=== PATIENT | female | born 1980 | race Caucasian/White ===

== ENCOUNTER → 2018-05-27 | Outpatient (CLI) | payer MEDICAID | END | disposition home or self-care (01) | LOC: RAD 16:43 | DX: R76.11 Nonspecific reaction to tuberculin skin test without active tuberculosis (principal) | CPT/HCPCS: 71045 ==

== ENCOUNTER 2018-12-15 13:50 | Inpatient (IN) | payer MEDICAID ==
[~2018-12-15 13:50] MED LIST: EPHEDrine SULFATE 50 MG/5 ML SYG; OXYTOCIN 30 UNITS/LR 500 ML BAG IV
[2018-12-15] MEDS ORDERED: OXYTOCIN 30 UNITS/LR 500 ML IV ×2 (14:30→23:30)
[2018-12-15] MEDS ORDERED: CARBOPROST 250 MCG INJ IM ×2 (14:30→23:30)
[2018-12-15] MEDS ORDERED: LIDOCAINE 1% (MPF) 30 ML INJ INJ (14:30)
[2018-12-15] MEDS ORDERED: MISOPROSTOL 200 MCG TAB PR ×2 (14:30→23:30)
[2018-12-15] MEDS ORDERED: METHYLERGONOVINE 0.2 MG INJ IM ×2 (14:30→23:30)
[2018-12-15 15:17] LABS: ADD MAN DIFF? NO
[2018-12-15 15:21] LABS: WHITE BLOOD COUNT 6.1 10^3/ul (4.8-10.8)
[2018-12-15 15:21] LABS: BASOPHILS % 0.2 % (0.0-2.0); EOSINOPHILS % 0.3 % (0.0-7.0); HEMOGLOBIN 11.5 g/dl (12.0-16.0); LYMPHOCYTES # 1.4 10^3/ul (0.8-2.9); MEAN CORPUSCULAR HEMOGLOBIN 30.3 pg (29.0-33.0); MEAN CORPUSCULAR HGB CONC 34.8 g/dl (32.0-37.0); MEAN CORPUSCULAR VOLUME 86.8 fl (82.0-101.0); MEAN PLATELET VOLUME 9.9 fl (7.4-10.4); MONOCYTE # 0.5 10^3/ul (0.3-0.9); MONOCYTES % 7.7 % (0.0-11.0); NEUTROPHIL # 4.2 10^3/ul (1.6-7.5); NEUTROPHILS % 68.3 % (39.0-77.0); PLATELET COUNT 238 10^3/UL (140-415); RED CELL DISTRIBUTION WIDTH 13.1 % (11.5-14.5)
[2018-12-15] MEDS: LACTATED RINGER'S 1,000 ML IV ×2 (15:28→16:20)
[2018-12-15] MEDS ORDERED: CEFAZOLIN 2 GM/50 ML (PMX) 50 ML IVPB (15:30)
[2018-12-15 15:39] LABS: INR 0.89; PROTIME 12.1 Sec (11.9-14.9); PT RATIO 0.9
[2018-12-15 15:40] LABS: PARTIAL THROMBOPLASTIN TIME 24.3 Sec (23.0-35.0)
[2018-12-15 16:10] LABS: HEPATITIS B SURFACE ANTIGEN NEGATIVE (NEGATIVE)
[2018-12-15 16:24] LABS: RAPID PLASMA REAGIN NONREACTIVE (NR)
[2018-12-15] MEDS: CITRIC ACID/NA CITRATE 30 ML CUP PO (17:09)
[2018-12-15] MEDS: ONDANSETRON 4 MG INJ IV (17:09)
[2018-12-15] MEDS ORDERED: morphine SULFATE/PF (10 MG/10 ML) INJ (17:36)
[2018-12-15] MEDS ORDERED: PHENYLephrine (100 MCG/ML) 10ML SYG (17:36)
[2018-12-15] MEDS ORDERED: OXYTOCIN 10 UNIT INJ (17:36)
[2018-12-15] MEDS ORDERED: KETOROLAC 30 MG INJ (17:44)
[2018-12-15] MEDS ORDERED: DEXAMETHASONE 4 MG/ML 1 ML INJ (17:44)
[2018-12-15] MEDS: KETOROLAC 30 MG INJ IV (18:30)
[2018-12-15] MEDS: AZITHROMYCIN 500MG/NS (PMX) 250 ML IVPB (18:30)
[2018-12-15] MEDS ORDERED: NALBUPHINE HCL (10 MG/1 ML) INJ IV (19:00)
[2018-12-15] MEDS ORDERED: NALOXONE (0.4 MG/ML) INJ IV (19:00)
[2018-12-15] MEDS ORDERED: DIPHENHYDRAMINE 50 MG INJ IV (19:00)
[2018-12-15] MEDS ORDERED: ONDANSETRON 4 MG INJ IV (19:00)
[2018-12-15] MEDS ORDERED: morphine 2 MG INJ IV ×2 (19:00)
[2018-12-15] MEDS ORDERED: HYDROCODONE/APAP (5/325) TAB PO (19:00)
[2018-12-15] MEDS ORDERED: ACETAMINOPHEN 500 MG TAB PO (19:00)
[2018-12-15] MEDS ORDERED: KETOROLAC 30 MG INJ IV (19:00)
[2018-12-15] MEDS ORDERED: HYDROmorphONE 0.5 MG/0.5 ML SYG IV ×2 (19:00)
[2018-12-15] MEDS: OXYTOCIN 30 UNITS/LR 500 ML IV ×2 (20:06→20:07)
[2018-12-15] MEDS ORDERED: NA PHOSPHATE/BIPHOS 133 ML ENEMA PR (23:30)
[2018-12-16] MEDS: LACTATED RINGER'S 1,000 ML IV (00:49)
[2018-12-16] MEDS: CEFAZOLIN 2 GM/50 ML (PMX) 50 ML IVPB ×3 (00:49→15:23)
[2018-12-16] MEDS: CLINDAMYCIN 300 MG CAP PO ×5 (01:26→23:40)
[2018-12-16 08:50] LABS: ADD MAN DIFF? NO
[2018-12-16 08:53] LABS: BASOPHILS % 0.1 % (0.0-2.0); HEMATOCRIT 29.9 % (37.0-47.0); LYMPHOCYTES # 1.4 10^3/ul (0.8-2.9); LYMPHOCYTES % 12.3 % (15.0-51.0); MEAN CORPUSCULAR HEMOGLOBIN 29.3 pg (29.0-33.0); MEAN CORPUSCULAR HGB CONC 33.4 g/dl (32.0-37.0); MEAN CORPUSCULAR VOLUME 87.7 fl (82.0-101.0); MEAN PLATELET VOLUME 10.1 fl (7.4-10.4); MONOCYTE # 0.8 10^3/ul (0.3-0.9); MONOCYTES % 6.8 % (0.0-11.0); NEUTROPHIL # 8.9 10^3/ul (1.6-7.5); NEUTROPHILS % 80.3 % (39.0-77.0); PLATELET COUNT 209 10^3/UL (140-415); RED BLOOD COUNT 3.41 10^6/ul (4.20-5.40); RED CELL DISTRIBUTION WIDTH 13.2 % (11.5-14.5)
[2018-12-16] MEDS: SENNA/DOCUSATE NA (8.6MG/50MG) TAB PO ×2 (09:38→21:34)
[2018-12-16] MEDS: BISACODYL 10 MG SUPP PR (10:30)
[2018-12-16] MEDS ORDERED: HYDROCODONE/APAP (5/325) TAB PO (17:25)
[2018-12-16] MEDS: IBUPROFEN 800 MG TAB PO (21:33)
[2018-12-16] MEDS: LANOLIN HPA 1 PKT TOP (23:40)
[2018-12-17] MEDS: OXYCODONE/ACETAMINOPHEN (5/325) TAB PO ×2 (03:34→08:48)
[2018-12-17] MEDS: CLINDAMYCIN 300 MG CAP PO ×4 (05:44→23:43)
[2018-12-17] MEDS: IBUPROFEN 800 MG TAB PO ×3 (05:44→21:42)
[2018-12-17] MEDS: SENNA/DOCUSATE NA (8.6MG/50MG) TAB PO ×2 (08:48→21:41)
[2018-12-17 09:15] LABS: ADD MAN DIFF? NO
[2018-12-17 09:19] LABS: BASOPHILS % 0.1 % (0.0-2.0); EOSINOPHILS % 0.1 % (0.0-7.0); HEMATOCRIT 30.8 % (37.0-47.0); HEMOGLOBIN 10.4 g/dl (12.0-16.0); LYMPHOCYTES # 1.1 10^3/ul (0.8-2.9); LYMPHOCYTES % 11.2 % (15.0-51.0); MEAN CORPUSCULAR HEMOGLOBIN 29.4 pg (29.0-33.0); MEAN CORPUSCULAR HGB CONC 33.8 g/dl (32.0-37.0); MEAN PLATELET VOLUME 9.5 fl (7.4-10.4); MONOCYTE # 0.5 10^3/ul (0.3-0.9); MONOCYTES % 4.7 % (0.0-11.0); NEUTROPHIL # 8.1 10^3/ul (1.6-7.5); NEUTROPHILS % 83.2 % (39.0-77.0); PLATELET COUNT 215 10^3/UL (140-415); RED BLOOD COUNT 3.54 10^6/ul (4.20-5.40); RED CELL DISTRIBUTION WIDTH 13.4 % (11.5-14.5)
[2018-12-17 09:19] LABS: WHITE BLOOD COUNT 9.7 10^3/ul (4.8-10.8)
[2018-12-17] MEDS: CIPROFLOXACIN 500 MG TAB PO ×2 (15:12→18:13)
[2018-12-17] MEDS: ACETAMINOPHEN 325 MG TAB PO (15:13)
[2018-12-17] MEDS ORDERED: ACETAMINOPHEN 325 MG TAB PO (16:00)
[2018-12-18] MEDS: CLINDAMYCIN 300 MG CAP PO ×2 (05:44→11:52)
[2018-12-18] MEDS: IBUPROFEN 800 MG TAB PO (05:44)
[2018-12-18] MEDS: CIPROFLOXACIN 500 MG TAB PO (05:44)
[2018-12-18] MEDS: LANOLIN HPA 1 PKT TOP (06:26)
[2018-12-18 07:55] LABS: ADD MAN DIFF? NO
[2018-12-18 07:58] LABS: BASOPHILS % 0.3 % (0.0-2.0); EOSINOPHILS # 0.1 10^3/ul (0.0-0.5); EOSINOPHILS % 0.6 % (0.0-7.0); HEMATOCRIT 27.7 % (37.0-47.0); HEMOGLOBIN 9.3 g/dl (12.0-16.0); LYMPHOCYTES # 1.4 10^3/ul (0.8-2.9); LYMPHOCYTES % 18.5 % (15.0-51.0); MEAN CORPUSCULAR HEMOGLOBIN 29.8 pg (29.0-33.0); MEAN CORPUSCULAR HGB CONC 33.6 g/dl (32.0-37.0); MEAN CORPUSCULAR VOLUME 88.8 fl (82.0-101.0); MEAN PLATELET VOLUME 9.4 fl (7.4-10.4); MONOCYTE # 0.6 10^3/ul (0.3-0.9); MONOCYTES % 7.1 % (0.0-11.0); NEUTROPHIL # 5.6 10^3/ul (1.6-7.5); NEUTROPHILS % 73.1 % (39.0-77.0); PLATELET COUNT 188 10^3/UL (140-415); RED BLOOD COUNT 3.12 10^6/ul (4.20-5.40); RED CELL DISTRIBUTION WIDTH 13.6 % (11.5-14.5)
[2018-12-18 07:58] LABS: WHITE BLOOD COUNT 7.7 10^3/ul (4.8-10.8)
[2018-12-18] MEDS: MEASLES,MUMPS,RUBELLA VACCINE INJ SC* (09:00)
[2018-12-18] MEDS: SENNA/DOCUSATE NA (8.6MG/50MG) TAB PO (09:00)
[2018-12-18] MEDS: DIPHTH/TET/ACEL PERTUSS (ADULT) 0.5 ML VIAL IM* (09:00)
== END 2018-12-18 14:05 | disposition home or self-care (01) | DRG 788 ==
LOC: L-D 13:50 → PP1 22:02
PROVIDERS: Obstetrics & Gynecology
PROC: 10D00Z1 Extraction of Products of Conception, Low, Open Approach (ICD-10-PCS; principal; 2018-12-15 15:30)
PROC: 3E033VJ Introduction of Other Hormone into Peripheral Vein, Percutaneous Approach (ICD-10-PCS; 2018-12-15 15:30)
DX: O48.0 Post-term pregnancy (principal); Z3A.40 40 weeks gestation of pregnancy; O32.1XX0 Maternal care for breech presentation, not applicable or unspecified; Z37.0 Single live birth
CPT/HCPCS: 76815; 85025; 85610; 85730; 86592; 86850; 86900; 86901; 87340; 99464